=== PATIENT | male | born 1985 | race Caucasian/White ===

== ENCOUNTER 2019-12-26 23:45 | Emergency (ER) | payer OTHER ==
[~2019-12-26] VITALS: Ht 182.9 cm; Wt 74.8 kg
--- NOTE | 2019-12-27 01:00 | NUR ---
Dr. Parra at bedside for MSE.
--- NOTE | 2019-12-27 01:30 | NUR ---
Xray at bedside.
[2019-12-27] MEDS ORDERED: KETOROLAC TROMETHAMINE 60 MG INJ IM ONE ×2 (02:17→02:30)
[2019-12-27 02:41] VITALS: BP 107/81
--- NOTE | 2019-12-27 02:41 | NUR ---
Patient discharged to home in stable conditon. Written and verbal after care instructions given. Patient verbalizes understanding of instructions. Pt ambulated out of ER with steady gait, no acute signs of distress, VSS, all belongings taken.
== END 2019-12-27 02:42 | disposition home or self-care (01) ==
LOC: ER 12-27
DX: M25.511 Pain in right shoulder (principal); F41.9 Anxiety disorder, unspecified; F31.9 Bipolar disorder, unspecified; Z79.899 Other long term (current) drug therapy; Z60.2 Problems related to living alone; V23.4XXA Motorcycle driver injured in collision with car, pick-up truck or van in traffic accident, initial encounter; Y93.89 Activity, other specified; Y92.89 Other specified places as the place of occurrence of the external cause; Y99.8 Other external cause status
CPT/HCPCS: 73030; 96372; 99283; J1885; A4663

== ENCOUNTER 2020-01-15 02:33 | Emergency (ER) | payer OTHER ==
[~2020-01-15] VITALS: Ht 182.9 cm; Wt 77.1 kg
--- NOTE | 2020-01-15 02:40 | NUR ---
Dr. Parra at bedside for MSE.
--- NOTE | 2020-01-15 02:48 | NUR ---
Xray at bedside.
[2020-01-15] MEDS ORDERED: KETOROLAC TROMETHAMINE 60 MG INJ IM ONE ×2 (02:56→03:00)
[2020-01-15 03:56] VITALS: BP 110/80
== END 2020-01-15 03:57 | disposition home or self-care (01) ==
LOC: ER 02:48
DX: S60.112A Contusion of left thumb with damage to nail, initial encounter (principal); Z79.899 Other long term (current) drug therapy; W23.0XXA Caught, crushed, jammed, or pinched between moving objects, initial encounter; Y93.89 Activity, other specified; Y92.89 Other specified places as the place of occurrence of the external cause; Y99.8 Other external cause status
CPT/HCPCS: 11740; 73130; 96372; 99284; J1885; A4663